=== PATIENT | female | born 1970 | race Caucasian/White ===

== ENCOUNTER 2018-02-19 11:28 | Emergency (ER) | payer OTHER ==
[~2018-02-19] VITALS: Ht 170.2 cm; Wt 79.4 kg
[2018-02-19] MEDS ORDERED: PROGESTERO50 MG/1 M1 (11:52)
== END 2018-02-19 15:10 | disposition home or self-care (01) ==
LOC: ER 11:28
DX: R42 Dizziness and giddiness (principal)